=== PATIENT | female | born 2000 | race Asian ===

== ENCOUNTER 2021-10-27 05:46 | Emergency (ER) | payer SELFPAY ==
[~2021-10-27] VITALS: Ht 144.8 cm; Wt 36.8 kg
[2021-10-27 06:03] VITALS: TEMP 97.9
[2021-10-27 06:59] LABS: STREP SCREEN NEGATIVE
[2021-10-27] MEDS ORDERED: ATARAX 25MG25 MG/TAB PO (07:06)
[2021-10-27 07:38] VITALS: BP 95/50; PULSE 61
== END 2021-10-27 07:40 | disposition home or self-care (01) ==
LOC: COL.ER 05:46
PROVIDERS: Emergency Medicine
DX: R53.81 Other malaise (principal); F41.9 Anxiety disorder, unspecified; J02.9 Acute pharyngitis, unspecified; Z20.822 Contact with and (suspected) exposure to COVID-19